=== PATIENT | male | born 1975 | race Caucasian/White ===

== ENCOUNTER → 2019-03-12 | Outpatient (CLI) | payer BC ==
--- NOTE | 2019-03-12 11:52 | RAD ---
EXAM DESCRIPTION: Chest,2 Views CLINICAL HISTORY: ADULT HEALTH EXAMINATION COMPARISON: None TECHNIQUE: PA/lateral FINDINGS: There is no acute appearing cardiac or pulmonary abnormality. Heart size is normal with normal pulmonary vascularity. No pleural effusion or pneumothorax. Lungs are clear with no consolidating infiltrate. Lateral view shows intact sternum and T-spine. IMPRESSION: No acute process is identified in the chest. Electronically signed by: Modesto Bunch MD 03/12/2019 11:50 AM CDT
== END ==
LOC: LAB.O 10:29
PROVIDERS: ATTEND Nurse Practitioner Family
DX: Z00.01 Encounter for general adult medical examination with abnormal findings (principal); G47.30 Sleep apnea, unspecified; R53.83 Other fatigue; F17.200 Nicotine dependence, unspecified, uncomplicated; D51.0 Vitamin B12 deficiency anemia due to intrinsic factor deficiency; E03.9 Hypothyroidism, unspecified; E55.9 Vitamin D deficiency, unspecified; R00.0 Tachycardia, unspecified; Z12.5 Encounter for screening for malignant neoplasm of prostate; Z80.7 Family history of other malignant neoplasms of lymphoid, hematopoietic and related tissues; Z13.220 Encounter for screening for lipoid disorders; Z68.31 Body mass index [BMI] 31.0-31.9, adult

== ENCOUNTER → 2019-07-06 | Outpatient (CLI) | payer BC ==
--- NOTE | 2019-07-06 16:43 | RAD ---
XR FEMUR 2 VIEWS HISTORY: 44 years Male LEFT THIGH PAIN COMPARISON: None. TECHNIQUE: 4 view radiograph of the left. IMPRESSION: No acute displaced fracture. No dislocation. No radiopaque foreign body. No soft tissue defect or laceration. Electronically signed by: Favian Goff MD 07/06/2019 4:41 PM RN ORTHO
--- NOTE | 2019-07-07 08:20 | US ---
EXAM DESCRIPTION: Venous,Lower Extremity LT: ULTRASOUND. CLINICAL HISTORY: LEFT THIGH PAIN COMPARISON: None Available. TECHNIQUE: Park-scale and doppler sonographic evaluation of the deep venous system of the left lower extremity. FINDINGS: Doppler evaluation shows normal color flow and normal phasicity and augmentation of the left common femoral vein, femoral vein, popliteal vein, greater saphenous vein, junction with the CFV. Also normal color flow and normal phasicity and augmentation of the peroneal, and posterior tibial vein. The left lower extremity deep veins were completely compressible; normal occlusion with transducer pressure. Park-scale survey showed no echogenic thrombus within these veins. IMPRESSION: 1. Duplex ultrasound evaluation of the left lower extremity deep venous system showing no evidence of thrombosis. Electronically signed by: Jerry Walters MD 07/07/2019 8:19 AM [facility]
== END ==
LOC: YCFC.O 11:07
PROVIDERS: ATTEND Nurse Practitioner
DX: M79.652 Pain in left thigh (principal)

== ENCOUNTER → 2019-07-20 | Outpatient (CLI) | payer BC ==
--- NOTE | 2019-07-21 11:24 | RAD ---
EXAM DESCRIPTION: Lumbar Spine 3 Views CLINICAL HISTORY: 44 years Male, RADICULOPATHY COMPARISON: None. TECHNIQUE: 3 view radiograph of the lumbosacral spine. IMPRESSION: 5 lumbar type vertebral bodies. Most inferior disc space designated as L5-S1. No acute displaced fracture or compression deformity. Normal lumbar lordosis. Maintained AP alignment without listhesis. Moderate facet arthropathy at L4-5, L5-S1. Mild disc space during at L3-L4, L4-5. Electronically signed by: Favian Goff MD 07/21/2019 11:23 AM [facility]
== END ==
LOC: RAD 16:52
PROVIDERS: ATTEND Nurse Practitioner
DX: M54.16 Radiculopathy, lumbar region (principal); M48.8X6 Other specified spondylopathies, lumbar region

== ENCOUNTER → 2020-09-26 | Outpatient (CLI) | payer SELFPAY ==
--- NOTE | 2020-09-26 12:03 | CT ---
EXAM DESCRIPTION: Cervical Spine CLINICAL HISTORY: GROUND LEVEL FALL, NECK PAIN COMPARISON: None Available. TECHNIQUE: Multiple axial images of the cervical spine without contrast. Multiplanar reformatted images. This exam was performed according to our departmental dose-optimization program, which includes automated exposure control, adjustment of the mA and/or kV according to patient size and/or use of iterative reconstruction technique. FINDINGS: Straightening of the normal cervical lordosis, which may be seen with positioning or muscle spasm. There is no acute fracture or destructive osseous lesion. Intervertebral disc heights are maintained. No CT evidence of significant posterior disc bulge, spinal canal, or neural foraminal stenosis. Visualized soft tissues of the neck have an unremarkable noncontrast appearance. The visualized lung apices are clear. IMPRESSION: 1. No CT evidence of an acute osseous abnormality in the cervical spine. Electronically signed by: Jonny Senior MD 09/26/2020 12:02 PM [facility]
== END ==
LOC: YCFC.O 11:25
PROVIDERS: ATTEND Nurse Practitioner
DX: M54.2 Cervicalgia (principal)